=== PATIENT | male | born 1970 | race Caucasian/White ===

== ENCOUNTER 2017-05-05 13:04 | Emergency (ER) | payer OTHER ==
[~2017-05-05] VITALS: Ht 188 cm; Wt 81.3 kg
[~2017-05-05 13:04] MED LIST: IBUPROFEN800 MG PO; LEVAQUIN750 MG PO; MOTRIN800 MG PO; TYLENOL REGULA325 MG PO
[2017-05-05 13:48] VITALS: BP 143/84
== END 2017-05-05 13:50 | disposition left against medical advice (07) ==
LOC: EME 13:04
DX: R56.9 Unspecified convulsions (principal); Z53.20 Procedure and treatment not carried out because of patient's decision for unspecified reasons; F17.200 Nicotine dependence, unspecified, uncomplicated

== ENCOUNTER 2017-06-08 15:16 | Emergency (ER) | payer OTHER ==
[~2017-06-08] VITALS: Ht 188 cm; Wt 86.8 kg
[2017-06-08 16:13] LABS: ADD MIUA? YES; BILIRUBIN NEGATIVE; BLOOD MODERATE; COLOR YELLOW ((YELLOW)); GLUCOSE (STRIP) NEGATIVE; KETONES NEGATIVE; LEUKOCYTES NEGATIVE; NITRITE NEGATIVE; PROTEIN (STRIP) 100; SPECIFIC GRAVITY 1.014 (1.000-1.030); UROBILINOGEN 0.2 MG/DL (0.2-1.0)
[2017-06-08 16:14] LABS: CHLORIDE 104 mEq/L (99-109); SODIUM 145 mEq/L (136-147)
[2017-06-08 16:16] LABS: GLUCOSE 118 mg/dL (70-99)
[2017-06-08 16:17] LABS: ANION GAP 16 MEQ/L (2-14)
[2017-06-08 16:18] LABS: TOTAL BILIRUBIN 0.5 mg/dL (0.0-1.0)
[2017-06-08 16:19] LABS: ALKALINE PHOSPHATASE 96 IU/L (3-129); SERUM ETHYL ALCOHOL 283 mg/dL
[2017-06-08 16:20] LABS: GFR ESTIMATE (CALCULATED) > 59 mL/min/
[2017-06-08 16:21] LABS: UREA NITROGEN (BUN) 11 mg/dL (9-23)
[2017-06-08 16:22] LABS: ADD MEDTOX COMMENT Y; AMPHETAMINE NEGATIVE (500 ng/mL); BARBITURATES NEGATIVE (200 ng/mL); BENZODIAZEPINES NEGATIVE (150 ng/mL); COCAINE NEGATIVE (150 ng/mL); INTERNAL CONTROLS VALID? YES; METHADONE NEGATIVE (200 ng/mL); METHAMPHETAMINE NEGATIVE (500 ng/mL); OPIATES (MORPHINE) NEGATIVE (100 ng/mL); OXYCODONE NEGATIVE (100 ng/mL); PHENCYCLIDINE NEGATIVE (25 ng/mL); PROPOXYPHENE NEGATIVE (300 ng/mL); THC CANNABINOIDS PRESUMPTIVE POSITIVE (50 ng/mL); TRICYCLIC ANTIDEPRESSANTS NEGATIVE (300 ng/mL)
[2017-06-08 16:22] LABS: HEMATOCRIT 38.8 % (38.0-50.0); MCH 34.7 PG (29.0-34.0); MCHC 33.8 G/DL (30.0-36.0); MCV 102.6 FL (86-99); PLATELET COUNT 128 K/uL (156-360); RBC DIS.WIDTH-CV 13.1 % (11.8-14.6); RBC DIS.WIDTH-SD 49.5 % (39-53); RED BLOOD COUNT 3.78 M/uL (4.00-5.50); WHITE BLOOD COUNT 6.8 K/uL (4.1-10.2)
[2017-06-08 16:31] LABS: BACTERIA RARE /HPF; EPITHELIAL CELLS NONE SEEN /HPF; MUCUS TRACE /LPF; RED BLOOD CELLS 0-5 /HPF (0-5); UCUL ADDED? NO; UNCLASSIFIED CASTS 0-5 /LPF; WHITE BLOOD CELLS 0-5 /HPF (0-5)
[2017-06-08 18:38] VITALS: BP 152/89
== END 2017-06-08 18:39 | disposition home or self-care (01) ==
LOC: EME 15:16
PROVIDERS: Physician Assistant
DX: R56.9 Unspecified convulsions (principal); E87.6 Hypokalemia; F17.200 Nicotine dependence, unspecified, uncomplicated; F10.10 Alcohol abuse, uncomplicated; F12.90 Cannabis use, unspecified, uncomplicated
CPT/HCPCS: 70450; 80053; 81003; 84999; 85027; 93005; 99281; 99284; G0480; J2310; J7030

== ENCOUNTER 2017-11-09 21:49 | Emergency (ER) | payer OTHER ==
[~2017-11-09] VITALS: Ht 188 cm; Wt 89.3 kg
[2017-11-09 22:03] VITALS: BP 106/58
[2017-11-09 22:29] LABS: HEMATOCRIT 43.8 % (38.0-50.0); MCH 35.5 PG (29.0-34.0); MCHC 34.2 G/DL (30.0-36.0); MCV 103.8 FL (86-99); PLATELET COUNT 147 K/uL (156-360); RBC DIS.WIDTH-CV 12.2 % (11.8-14.6); RBC DIS.WIDTH-SD 46.8 % (39-53); RED BLOOD COUNT 4.22 M/uL (4.00-5.50); WHITE BLOOD COUNT 11.5 K/uL (4.1-10.2)
[2017-11-09 22:44] LABS: CHLORIDE 111 mEq/L (99-109); POTASSIUM 3.5 mEq/L (3.7-5.4); SODIUM 149 mEq/L (136-147)
[2017-11-09 22:45] LABS: GLUCOSE 136 mg/dL (70-99)
[2017-11-09 22:48] LABS: SERUM ETHYL ALCOHOL 258 mg/dL
[2017-11-09 22:49] LABS: GFR ESTIMATE (CALCULATED) > 59 mL/min/ (58.99-99999)
[2017-11-09 22:51] LABS: UREA NITROGEN (BUN) 11 mg/dL (9-23)
[2017-11-09 22:52] LABS: SALICYLATE < 5.0 MG/DL (15-30)
[2017-11-09 22:53] LABS: ACETAMINOPHEN (TYLENOL) < 10 mcg/mL (10-30)
== END 2017-11-09 23:50 | disposition left against medical advice (07) ==
LOC: EME → EDBD 21:49 → EME 23:50
PROVIDERS: Emergency Medicine
DX: R41.82 Altered mental status, unspecified (principal); F10.129 Alcohol abuse with intoxication, unspecified; E86.0 Dehydration; R09.02 Hypoxemia; E87.6 Hypokalemia; F12.90 Cannabis use, unspecified, uncomplicated; G40.909 Epilepsy, unspecified, not intractable, without status epilepticus; F17.200 Nicotine dependence, unspecified, uncomplicated; Y90.8 Blood alcohol level of 240 mg/100 ml or more; Z53.20 Procedure and treatment not carried out because of patient's decision for unspecified reasons
CPT/HCPCS: 71045; 80048; 85027; 93005; 99281; 99284; G0480; J2310; J2405; J7030